=== PATIENT | female | born 1950 | race Caucasian/White ===

== ENCOUNTER → 2018-03-27 | Outpatient (CLI) | payer MEDICARE, BC | END | disposition home or self-care (01) | LOC: LAB SHORT 17:00 → LAB EV 17:00 | DX: R30.0 Dysuria (principal) | CPT/HCPCS: 87086 ==

== ENCOUNTER → 2018-11-02 | Outpatient (CLI) | payer MEDICARE, BC | END | disposition home or self-care (01) | LOC: PLD 15:14 → LAB SHORT 15:14 | DX: D22.5 Melanocytic nevi of trunk (principal); D22.72 Melanocytic nevi of left lower limb, including hip; D22.61 Melanocytic nevi of right upper limb, including shoulder | CPT/HCPCS: 88305 ==

== ENCOUNTER 2019-06-15 09:07 | Day surgery (SDC) | payer MEDICARE, BC ==
[~2019-06-15] VITALS: Ht 167.6 cm; Wt 68.6 kg
[~2019-06-15 09:07] MED LIST: Calcium Carbon500 MG PO; Cytomel5 MCG PO; DHEA25 MG PO; Daily Vitamin1 EAC8 PO; LEVSOD75 PO; PREGNENOLONE PO; PROGESTERONE CREAM; VITAMIN D31000 UNIT PO
== END 2019-06-15 11:31 | disposition home or self-care (01) ==
LOC: ORSCSDS 09:07
PROVIDERS: Internal Medicine Gastroenterology
PROC: 0DBK8ZX Excision of Ascending Colon, Via Natural or Artificial Opening Endoscopic, Diagnostic (ICD-10-PCS; principal; 2019-06-15 10:30)
PROC: 0DBH8ZX Excision of Cecum, Via Natural or Artificial Opening Endoscopic, Diagnostic (ICD-10-PCS; principal; 2019-06-15 10:30)
PROC: 0DBL8ZX Excision of Transverse Colon, Via Natural or Artificial Opening Endoscopic, Diagnostic (ICD-10-PCS; principal; 2019-06-15 10:30)
DX: Z12.11 Encounter for screening for malignant neoplasm of colon (principal); Z86.010 Personal history of colon polyps; D12.0 Benign neoplasm of cecum; D12.2 Benign neoplasm of ascending colon; D12.3 Benign neoplasm of transverse colon; K57.30 Diverticulosis of large intestine without perforation or abscess without bleeding; E03.9 Hypothyroidism, unspecified; Z79.899 Other long term (current) drug therapy
CPT/HCPCS: 88305; J2704; J7120

== ENCOUNTER → 2020-02-12 | Outpatient (CLI) | payer MEDICARE, BC | END | disposition home or self-care (01) | LOC: PLD 15:16 → LAB SHORT 15:16 | DX: D22.5 Melanocytic nevi of trunk (principal); D22.71 Melanocytic nevi of right lower limb, including hip | CPT/HCPCS: 88305 ==

== ENCOUNTER 2022-05-10 09:55 | Day surgery (SDC) | payer MEDICARE, BC ==
[~2022-05-10] VITALS: Ht 167.6 cm; Wt 69.1 kg
[2022-05-10] MEDS ORDERED: METO25ER (10:25)
[2022-05-10] MEDS ORDERED: ATOR10 (10:25)
[2022-05-10] MEDS ORDERED: OMEP20ER (10:25)
== END 2022-05-10 13:11 | disposition home or self-care (01) ==
LOC: ORSCSDS 09:55
PROVIDERS: Internal Medicine Gastroenterology
PROC: 0DB48ZX Excision of Esophagogastric Junction, Via Natural or Artificial Opening Endoscopic, Diagnostic (ICD-10-PCS; principal; 2022-05-10 11:15)
PROC: 0DB58ZX Excision of Esophagus, Via Natural or Artificial Opening Endoscopic, Diagnostic (ICD-10-PCS; principal; 2022-05-10 11:15)
PROC: 0DBH8ZX Excision of Cecum, Via Natural or Artificial Opening Endoscopic, Diagnostic (ICD-10-PCS; principal; 2022-05-10 11:15)
DX: R12 Heartburn (principal); K20.90 Esophagitis, unspecified without bleeding; K44.9 Diaphragmatic hernia without obstruction or gangrene; Z12.11 Encounter for screening for malignant neoplasm of colon; D12.0 Benign neoplasm of cecum; K57.30 Diverticulosis of large intestine without perforation or abscess without bleeding; Z86.010 Personal history of colon polyps; N18.9 Chronic kidney disease, unspecified; E78.5 Hyperlipidemia, unspecified; E03.9 Hypothyroidism, unspecified; I47.1 Supraventricular tachycardia; Z79.899 Other long term (current) drug therapy
CPT/HCPCS: 88305; J2704; J7120

== ENCOUNTER 2022-10-08 07:38 | Day surgery (SDC) | payer MEDICARE, BC ==
[~2022-10-08] VITALS: Ht 167.6 cm; Wt 69.4 kg
[~2022-10-08 07:38] MED LIST changes: +ATOR10; +METO25ER; +OMEP20ER
--- NOTE | 2022-10-08 09:51 | NUR ---
10/08/22 0951 NATHAN HAMEED 50MLS OF [address] POURED ONTO STERILE FIELD TO USE DURING CASE.
--- NOTE | 2022-10-08 11:36 | NUR ---
10/08/22 1136 Sachi Curiel PATIENT REPORTED NO PAIN AND EXPRESSED READINESS TO GO HOME
== END 2022-10-08 11:30 | disposition home or self-care (01) ==
LOC: ORSCSDS 07:38
PROVIDERS: Surgery
PROC: 0FT44ZZ Resection of Gallbladder, Percutaneous Endoscopic Approach (ICD-10-PCS; principal; 2022-10-08 09:00)
PROC: BF031ZZ Plain Radiography of Gallbladder and Bile Ducts using Low Osmolar Contrast (ICD-10-PCS; principal; 2022-10-08 09:00)
DX: K80.10 Calculus of gallbladder with chronic cholecystitis without obstruction (principal); E78.5 Hyperlipidemia, unspecified; E03.9 Hypothyroidism, unspecified; N18.9 Chronic kidney disease, unspecified; E88.81 Metabolic syndrome and other insulin resistance; Z79.899 Other long term (current) drug therapy
CPT/HCPCS: 74300; 82947; 88304; C1729; J0690; J1100; J1885; J2250; J2405; J2704; J2795; J3010

== ENCOUNTER → 2024-10-19 | Outpatient (CLI) | payer MEDICARE, BC | LOC: LAB 12:47 → LAB SHORT 12:47 | DX: R41.3 Other amnesia (principal) | CPT/HCPCS: 85651 ==